=== PATIENT | male | born 2000 | race Caucasian/White ===

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

== ENCOUNTER 2021-02-13 19:45 | Emergency (ER) | payer SELFPAY ==
[2021-02-13 19:51] VITALS: BP 139/76
[2021-02-13] MEDS ORDERED: NAPROXEN250 MG PO (20:33)
[2021-02-13] MEDS ORDERED: METHOCARBAMOL750 M1 PO (20:33)
== END 2021-02-13 20:42 | disposition home or self-care (01) ==
LOC: ED 19:45
DX: S40.011A Contusion of right shoulder, initial encounter (principal); Z88.2 Allergy status to sulfonamides; Z79.899 Other long term (current) drug therapy; V89.2XXA Person injured in unspecified motor-vehicle accident, traffic, initial encounter; Y93.89 Activity, other specified; Y92.89 Other specified places as the place of occurrence of the external cause; Y99.8 Other external cause status